=== PATIENT | female | born 1990 | race Caucasian/White ===

== ENCOUNTER 2016-09-29 12:16 | Emergency (ER) | payer SELFPAY ==
[~2016-09-29] VITALS: Ht 170.2 cm; Wt 111.1 kg
[2016-09-29 14:59] VITALS: BP 131/89
[2016-09-29] MEDS ORDERED: BENZONATATE 100 MG CAPSULE PO ONE (15:00)
== END 2016-09-29 15:01 | disposition home or self-care (01) ==
LOC: ED 14:55
DX: J20.8 Acute bronchitis due to other specified organisms (principal)
CPT/HCPCS: 71020; 99284

== ENCOUNTER 2016-10-05 18:42 | Emergency (ER) | payer SELFPAY ==
[~2016-10-05] VITALS: Ht 170.2 cm; Wt 110.2 kg
[2016-10-05 18:46] VITALS: BP 129/91
[2016-10-05] MEDS ORDERED: DEXAMETHASONE 4 MG TABLET PO STA (19:10)
[2016-10-05] MEDS ORDERED: DEXAMETHASONE 4 MG TABLET ONE (19:16)
== END 2016-10-05 19:22 | disposition home or self-care (01) ==
LOC: ED 19:16
DX: J04.0 Acute laryngitis (principal); B97.89 Other viral agents as the cause of diseases classified elsewhere; J45.909 Unspecified asthma, uncomplicated; F17.200 Nicotine dependence, unspecified, uncomplicated
CPT/HCPCS: 99283

== ENCOUNTER 2016-10-12 13:23 | Emergency (ER) | payer SELFPAY ==
[~2016-10-12] VITALS: Ht 170.2 cm; Wt 111.4 kg
[2016-10-12] MEDS ORDERED: HYDROmorphone 1 MG/ML, 1ML IM ONE (15:00)
[2016-10-12] MEDS ORDERED: ONDANSETRON ODT 4 MG PO ONE (15:00)
[2016-10-12] MEDS ORDERED: HYDROmorphone 1 MG/ML, 1ML ONE (15:04)
[2016-10-12] MEDS ORDERED: ONDANSETRON ODT 4 MG ONE (15:05)
[2016-10-12 15:07] VITALS: BP 124/80
== END 2016-10-12 16:03 | disposition home or self-care (01) ==
LOC: ED 14:42
DX: M54.16 Radiculopathy, lumbar region (principal); M54.41 Lumbago with sciatica, right side; J45.909 Unspecified asthma, uncomplicated
CPT/HCPCS: 96372; 99283; J1170; Q0162

== ENCOUNTER 2017-03-19 16:07 | Inpatient (IN) | payer SELFPAY ==
[~2017-03-19] VITALS: Ht 170.2 cm; Wt 106.5 kg
[2017-03-19] MEDS ORDERED: ATROPINE SYRINGE 0.1 MG/ML, 10ML ONE (16:43)
[2017-03-19 16:52] LABS: HEMATOCRIT 48.3 % (34.6-47.8); HEMOGLOBIN 15.9 g/dL (11.7-16.4); WHITE BLOOD COUNT 9.8 x10^3/uL (3.4-10)
[2017-03-19] MEDS ORDERED: ATROPINE SYRINGE 0.1 MG/ML, 10ML IVPush ONE (17:00)
[2017-03-19] MEDS ORDERED: SODIUM CHLORIDE 0.9% 1,000ML IVBOLUS ONE (17:00)
[2017-03-19] MEDS ORDERED: SODIUM CHLORIDE FLUSH 10ML SYR IVF ONE (17:00)
[2017-03-19 17:02] LABS: BLOOD UREA NITROGEN 12 mg/dL (7-18)
[2017-03-19 17:03] LABS: DAU SCREEN DISCLAIMER
[2017-03-19 17:08] LABS: ASPARTATE AMINO TRANSFERASE 9 U/L (15-37)
[2017-03-19 17:09] LABS: IS PT STATUS REG ER OR PRE ER? YES
[2017-03-19] MEDS: SODIUM CHLORIDE 0.9% 1,000 ML IV SCH (18:39)
[2017-03-19] MEDS: NICOTINE 14MG/24 HR PATCH.TD24 TD SCH (19:00)
[2017-03-19] MEDS: PLEASE ENTER HEIGHT AND WEIGHT MC SCH (19:00)
[2017-03-19] MEDS ORDERED: POLYETHYLENE GLYCOL 17 GM PACKET PO PRN (19:00)
[2017-03-19] MEDS ORDERED: BISACODYL 10 MG SUPP PR PRN (19:00)
[2017-03-19] MEDS ORDERED: ONDANSETRON 2MG/ML, 2ML IVPush PRN (19:00)
[2017-03-19 20:31] VITALS: BP 106/62
[2017-03-19] MEDS: ACETAMINOPHEN 325 MG TABLET PO PRN (21:37)
[2017-03-19] MEDS: HEPARIN 5,000 UNITS/ML, 1ML SQ SCH (21:37)
[2017-03-20] MEDS: PLEASE ENTER HEIGHT AND WEIGHT MC SCH ×2 (01:56→09:44)
[2017-03-20 02:55] VITALS: BP 108/54
[2017-03-20] MEDS: SODIUM CHLORIDE 0.9% 1,000 ML IV SCH ×2 (02:55→15:26)
[2017-03-20 05:25] LABS: HEMATOCRIT 40.8 % (34.6-47.8); HEMOGLOBIN 13.7 g/dL (11.7-16.4); WHITE BLOOD COUNT 7.1 x10^3/uL (3.4-10)
[2017-03-20 05:49] LABS: ASPARTATE AMINO TRANSFERASE 10 U/L (15-37); BLOOD UREA NITROGEN 14 mg/dL (7-18)
[2017-03-20 05:51] LABS: IS PT STATUS REG ER OR PRE ER? NO
[2017-03-20 06:33] LABS: HCG UR LOT HCG7030192
[2017-03-20 06:46] LABS: HCG UR OBC PASS
[2017-03-20 06:55] VITALS: BP 112/59
[2017-03-20] MEDS: ACETAMINOPHEN 325 MG TABLET PO PRN (09:45)
[2017-03-20] MEDS: HEPARIN 5,000 UNITS/ML, 1ML SQ SCH ×2 (09:45→17:00)
[2017-03-20] MEDS: SENNA/DOCUSATE TABLET PO SCH (09:45)
[2017-03-20 11:39] LABS: IS PT STATUS REG ER OR PRE ER? NO
[2017-03-20 15:11] VITALS: BP 120/75
[2017-03-20] MEDS: CEFTRIAXONE PMX 1GM/50ML 50 ML IV SCH (15:25)
[2017-03-20 19:00] VITALS: BP 117/75
[2017-03-20] MEDS: NICOTINE 14MG/24 HR PATCH.TD24 TD SCH (19:00)
[2017-03-21] VITALS (12 sets, daily range): BP systolic 100–124; BP diastolic 61–85
[2017-03-21] MEDS: HEPARIN 5,000 UNITS/ML, 1ML SQ SCH ×3 (01:38→16:31)
[2017-03-21] MEDS: SODIUM CHLORIDE 0.9% 1,000 ML IV SCH ×2 (01:39→10:39)
[2017-03-21] MEDS: SENNA/DOCUSATE TABLET PO SCH (09:00)
[2017-03-21] MEDS: CEFTRIAXONE PMX 1GM/50ML 50 ML IV SCH (15:04)
[2017-03-21] MEDS ORDERED: CEFD300C37 PO (15:30)
== END 2017-03-21 17:30 | disposition home or self-care (01) | DRG 690 ==
LOC: ED 17:14 → EDIP 17:46 → 5SO 18:52
PROVIDERS: ADMIT Internal Medicine; ATTEND Family Medicine
PROC: 0T9B70Z Drainage of Bladder with Drainage Device, Via Natural or Artificial Opening (ICD-10-PCS; principal; 2017-03-20)
DX: N39.0 Urinary tract infection, site not specified (principal); E66.9 Obesity, unspecified; F12.10 Cannabis abuse, uncomplicated; J45.909 Unspecified asthma, uncomplicated; S01.511A Laceration without foreign body of lip, initial encounter; F17.210 Nicotine dependence, cigarettes, uncomplicated; I10 Essential (primary) hypertension; G89.29 Other chronic pain; R55 Syncope and collapse; M54.9 Dorsalgia, unspecified; R00.1 Bradycardia, unspecified; Z68.36 Body mass index [BMI] 36.0-36.9, adult; Z79.899 Other long term (current) drug therapy
CPT/HCPCS: 36415; 70450; 71010; 72125; 80053; 80307; 81001; 81025; 82533; 82962; 83735; 83880; 84439; 84443; 84484; 85025; 85610; 87086; 93005; 93306; 96374; J0461; J0696; J1644; J2405; G0479; J7030

== ENCOUNTER 2017-04-26 19:37 | Emergency (ER) | payer SELFPAY ==
[~2017-04-26] VITALS: Ht 170.2 cm; Wt 98.1 kg
[~2017-04-26 19:37] MED LIST: CEFD300C37 PO
[2017-04-26 19:54] VITALS: BP 141/87
== END 2017-04-26 21:09 | disposition home or self-care (01) ==
LOC: ED 21:03
DX: J20.8 Acute bronchitis due to other specified organisms (principal); J00 Acute nasopharyngitis [common cold]; F17.210 Nicotine dependence, cigarettes, uncomplicated; J45.909 Unspecified asthma, uncomplicated
CPT/HCPCS: 99283